=== PATIENT | female | born 1940 | race Caucasian/White ===

== ENCOUNTER 2016-09-30 12:07 | Inpatient (IN) | payer OTHER ==
[2016-09-25 14:34] LABS: HEMATOCRIT 39.3 % (36.0-48.0); HEMOGLOBIN 12.7 g/dL (12.0-16.0)
[2016-09-25 14:50] LABS: BUN (BLOOD UREA NITROGEN) 39 MG/DL (6-23); CALCIUM, SERUM 8.9 MG/DL (8.5-10.4); CHLORIDE, SERUM 105 MMOL/L (96-112); CO2 (CARBON DIOXIDE) 30 MMOL/L (24-34); CREATININE 1.09 MG/DL (0.55-1.02); GFR AFRICAN AMERICAN 58 ML/MIN (>=60); GFR NON AFRICAN AMERICAN 50 ML/MIN (>=60); GLUCOSE, SERUM 105 MG/DL (60-99); POTASSIUM, SERUM 4.5 MMOL/L (3.5-5.3); SODIUM, SERUM 144 MMOL/L (135-148)
[2016-09-25 16:21] LABS: ASCORBIC ACID (UR NOT ORDER) 20 (NEG); BILIRUBIN, URINE NEGATIVE (NEG); KETONE, URINE NEGATIVE (NEG); LEUKOCYTE ESTERASE(NOT OR LARGE (NEG); WBC (NOT ORDERED) (RFLEX) 121 (0-5)
--- NOTE | ~2016-09-30 | DS ---
Discharge Summary [facility] [address] [place]. [address] NAME: TAYLER JORDAN : 44 STATUS : DIS IN PAT#: [id number] AGE: 76 ADM/REG DATE : 09/30/16 MR#: [id number] REPORT SERV DATE: 11/07/16 DICTATED BY: SILVESTRE BAKER DATE: 11/07/16 REPORT STATUS : Draft TRANSCRIBED BY: CURRY DATE: 11/07/16 ADMISSION DATE: 09/30/2016 DISCHARGE DATE: 10/06/2016 DISCHARGE DIAGNOSIS: Colovesical fistula. DISCHARGE PROCEDURES: 1. Cystoscopy and transurethral resection of bladder. 2. Sigmoid colectomy. 3. Repair of bladder defect. HOSPITAL COURSE: Ms. Tayler Jordan is a 76-year-old female with a long history of bladder symptoms, hematuria, and recurrent UTIs. She has a bladder mass which was inflammatory in nature. On the date of admission, she underwent a cystoscopy and transurethral resection of this area. In the operating room, there was concern for connection between the colon and the bladder. This did appear to be pre-existing prior to the cystoscopy portion of this operation. This is likely driving all of her bladder symptoms. Once fistulous connection between the bladder and colon was unroofed, she was taken to the operating room, and underwent a sigmoid colectomy with repair of her bladder with the aid of Dr. Potts. Please see my operative note as well as Dr. Potts's operative note for full details. Postoperatively, the patient was transferred to the recovery room, then to the floor in stable condition. During her hospitalization, diet was gradually advanced to a regular diet. She had normal bowel movement prior to discharge. The drain placed prior to discharge was removed. [facility] with a Nogueira catheter in place. DISCHARGE MEDICATIONS: Please see discharge medication reconciliation work sheet. DISCHARGE INSTRUCTIONS: Please leave the Nogueira catheter in place. Take all medications as directed. No heavy lifting greater than 10 pounds. Please follow up with me in one week with a cystogram to confirm bladder healing prior to Nogueira catheter removal. FOLLOWUP: Please follow up in one week with a cystogram. ERICA/CURRY Silvestre Baker MD / [id number] CC: MD Rosalio Burch M.D.
--- NOTE | ~2016-09-30 | OP ---
Record Of Operation [facility] [address] [facility] [place]. [address] NAME: DIO DALE : 42 STATUS : ADM IN PAT#: [id number] AGE: 76 ADM/REG DATE : 09/30/16 MR#: [id number] REPORT SERV DATE: 10/03/16 DICTATED BY: SILVESTRE BAKER DATE: 10/03/16 REPORT STATUS : Draft TRANSCRIBED BY: MODL DATE: 10/03/16 DATE OF PROCEDURE: 09/30/2016 SURGEON: Silvestre Baker M.D. TITLE OF OPERATION: 1. Transurethral resection of bladder tumor greater than 5 cm. 2. Exploratory laparotomy. 3. Repair of bladder defect. PREOPERATIVE DIAGNOSIS: Polypoid cystitis. POSTOPERATIVE DIAGNOSES: 1. Diverticulosis. 2. Bladder perforation into colon. 3. Acute cholecystitis, due to inflamed diverticulosis with pending intracutaneous fistula. ANESTHESIA: General. COMPLICATIONS: Transurethral placement of enterovesical fistula. SPECIMENS: 1. Sigmoid colon. 2. Bladder mass. DRAINS: 1. 16-Bangladeshi Nogueira catheter. 2. #19 flat KRIS drain. NARRATIVE: The patient was brought to the operating room, identified by her wristband. General anesthesia was induced and Ancef was given for preoperative antibiotics. She was placed in dorsal lithotomy position, prepped and draped in sterile fashion. A cystoscope was placed into her urethra and into her bladder. A big polyp mass was seen in the posterior aspect in dome of the bladder. The cystoscope was removed and a 24-Bangladeshi resectoscope was placed into the urethra with the aid of an obturator. Using a 24-Bangladeshi loop, the polypoid mass was resected. Resection was done based on the assumption of polypoid cystitis which came back on prior biopsy. During the resection the inflamed muscularis propria was then resected and all of sudden I entered into a hollow space. The bases were inspected, the mucosa look like bowel. A cystogram was shot. This demonstrated a formation including the large bowel. There was no clear leakage of contrast into the peritoneal or retroperitoneal space. At this time the scope was removed. The chips that were resected were evacuated and sent to the pathology for analysis. The patient was moved extubated to an open room. I obtained general surgery consultation from Dr. Potts. After discussing the case with him, we decided that it would be best to perform an exploratory laparotomy with resection of the involved bowel and repair the bladder. Once, the patient Record Of Operation [facility] [place]. [address] NAME: DIO DALE : 42 STATUS : ADM IN PAT#: [id number] AGE: 76 ADM/REG DATE : 09/30/16 MR#: [id number] REPORT SERV DATE: 10/03/16 DICTATED BY: SILVESTRE BAKER DATE: 10/03/16 REPORT STATUS : Draft TRANSCRIBED BY: MODL DATE: 10/03/16 was in appropriate room and her antibiotics were broadened to Flagyl and Levaquin. A midline incision was made with a knife. The incision was deepened through the subcutaneous tissues with electrocautery. The fascia was also incised with scissors. The peritoneal cavity was entered with the Metzenbaum scissors. A retractor was placed. The bowel was packed out of the way. The findings were the sigmoid colon was stuck to the posterior aspect of the bladder. At this time Dr. Potts's special event assistant came into the room and performed a lysis of adhesions off from the bowel, off the bladder, and a sigmoid resection with primary hand-sewn anastomosis. For full details of this operation please see Dr. Potts's separately dictated operative note. Once Dr. Potts had finished his portion of the procedure, I scrubbed up in. There was bladder defect. The seromuscular layers of the bladder were grossly edematous and difficult to mobilize. Therefore, I made a larger cystotomy, so I can identify the mucosal borders. The previously resected tissue from the bladder from the TUR was removed to ensure good gvfsin-rg-ryszhm apposition. The mucosa was then closed with 2-0 Vicryl suture. This was done in a running fashion. The seromuscular layer was closed with interrupted 2-0 Vicryl suture in a vucqbz-ra-okhsu fashion. The bladder was irrigated, it was water tight, there was no leakage. The patient did have some scant omentum. This was brought down between the anastomosis in the bladder, there was not that much omentum to place down here unfortunately. Next, the #9 flat KRIS drain was placed through a separate stab incision and placed in the vicinity of the repairs. The retractor was removed. Laparotomy pads were removed. Counts were all correct. The fascia was closed with a running #1 PDS suture. The wound was irrigated clear. The skin was closed with 4-0 Monocryl suture in a subcuticular fashion and Dermabond dressing was placed. The patient was awoken from anesthesia and transferred to the recovery room in stable condition. ERICA/CURRY Silvestre Baker MD / [id number] CC: MD Rosalio Burch M.D.
--- NOTE | ~2016-09-30 | HP ---
History And Physical [facility] [id number] [place]. [address] NAME: TAYLER JORDAN : 44 STATUS : DIS IN PAT#: [id number] AGE: 76 ADM/REG DATE : 09/30/16 MR#: [id number] REPORT SERV DATE: 11/07/16 DICTATED BY: SILVESTRE BAKER DATE: 11/07/16 REPORT STATUS : Draft TRANSCRIBED BY: MODL DATE: 11/07/16 DATE OF ADMISSION: 09/30/2016 CHIEF COMPLAINT: Colovesical fistula. HISTORY OF PRESENT ILLNESS: Ms. Tayler Jordan is a very pleasant 76-year-old female, who I have been seeing for recurrent bladder symptoms as well as hematuria. On CT scan, she was found to have a large bladder mass. This was biopsied and came back as polypoid cystitis. Recommended conservative management at that time. However, she has continued to bleed with concerning findings. She was then brought to the operating room on the date of admission for cystoscopy and transurethral resection of this mass. In the operating room, the mass was prominently in the posterior aspect of the bladder. There was marked erythema and potentially a fistulous tract. The fistulous tract was unroofed, which revealed a tract into the sigmoid colon. This process was clearly going on prior to the procedure. Given the now enlarged colovesical fistula, I put a catheter in the patient, transferred her to an operating room table, and performed an operation with the help of Dr. Potts. She underwent a sigmoid colectomy with primary reanastomosis with repair of her bladder defect. This is a history and physical for her subsequent admission. PAST MEDICAL HISTORY: Notable for a colovesical fistula as detailed above, hypertension, GERD, recurrent UTIs. PAST SURGICAL HISTORY: As detailed above. ALLERGIES: PENICILLIN. MEDICATIONS: Reviewed and are in the chart. FAMILY HISTORY: Negative for genitourinary malignancy. SOCIAL HISTORY: Social drinker. Does not smoke or use illegal drugs. REVIEW OF SYSTEMS: Performed, pertinent positives are listed in the HPI. PHYSICAL EXAMINATION: VITAL SIGNS: She is afebrile. Her vital signs are stable. GENERAL: She is in no acute distress. She appears her stated age. HEENT: Her head is normocephalic and atraumatic. LUNGS: Breathing is nonlabored. ABDOMEN: Tender from her prior surgery. She has a midline scar. NEUROLOGIC: She is alert and oriented x3. : Nogueira catheter is in place, urine is clear. ASSESSMENT AND PLAN: Ms. Jordan has undergone successful sigmoid colectomy with repair of bladder defect. She will be maintained in the hospital with a Nogueira catheter and KRIS drain History And Physical [address] [address] NAME: TAYLER JORDAN : 44 STATUS : DIS IN PAT#: [id number] AGE: 76 ADM/REG DATE : 09/30/16 MR#: [id number] REPORT SERV DATE: 11/07/16 DICTATED BY: SILVESTRE BAKER DATE: 11/07/16 REPORT STATUS : Draft TRANSCRIBED BY: CURRY DATE: 11/07/16 as she continues to heal. Dr. Potts and his team will follow closely and help manage her diet and her bowel function as well. I will leave the catheter in for approximately a week, at which time I will get a cystogram to see if her bladder has healed. She is doing well. ERICA/CURRY Silvestre Baker MD / [id number] CC: MD Rosalio Burch M.D.
--- NOTE | ~2016-09-30 | OP ---
Record Of Operation [facility] [address] [place]. [address] NAME: DIO DALE : 42 STATUS : ADM IN [facility]#: [id number] AGE: 76 ADM/REG DATE : 09/30/16 MR#: [id number] REPORT SERV DATE: 10/02/16 DICTATED BY: DEMOND POTTS DATE: 10/01/16 REPORT STATUS : Draft TRANSCRIBED BY: MODL DATE: 10/01/16 DATE OF PROCEDURE: 09/30/2016 PREOPERATIVE DIAGNOSIS: Rectosigmoid injury. POSTOPERATIVE DIAGNOSIS: Colovesical fistula secondary to remote diverticulitis, status post diagnostic cystoscopy. SURGEON: Demond Potts M.D. RESIDENT SURGEON: Dr. Anne Gracia. ANESTHESIA: General. DESCRIPTION OF FINDINGS: The patient had undergone cystoscopy by Dr. Baker and found communication to the . The patient then underwent exploratory laparotomy by Dr. Baker' finding markedly adherence, but no acute inflammation of the upper rectum, lower sigmoid to the dome of the bladder consistent with the patient's history of significant diverticulitis in 2013. This was resected and due to paucity of spillage compliant bowel and minimal stool within the bowel primary anastomosis was performed. DETAILS OF PROCEDURE: The patient was in the operating suite as per Dr. Baker. The sigmoid colon and upper rectum were found adherent to the dome of the bladder using careful blunt and sharp dissection. This was peeled away and connection with approximately 1.5 cm defect in the bladder was apparent and the bowel was entered as expected. This was fully mobilize. Bleeding control with 3-0 silk suture ligatures. The proximal bowel was very compliant and had a paucity of stool. This was mobilized, mesentery divided between clamps and secured with 2-0 and 3-0 Vicryl ligatures. Bowel was divided with firing of the Endo- JUAN 75 stapling device. The adherent bowel was then more fully dissected to where it was then mobilized fully from the bladder and distal to the area of and old inflammation. The mesentery was divided similarly and bowel divided with another firing of the Endo-JUAN 75 stapling device. Specimen was then palpated. There appeared to be no mass. This was sent for permanent histology. A kgws-ug-hkau rectosigmoid ostomy was then performed. Approximated the antimesenteric borders along the tenia and using 3-0 silk sutures at either end and then approximating full-thickness 3-0 PDS, the was entered longitudinally on either side of the suture line and using additional 3-0 PDS mucosa was approximated and then anterior suture row of interrupted 3-0 PDS was utilized excellent anastomotic lumen. Wound was irrigated. There was minimal contamination. All captured on lap pads. Once satisfied with the repair, colocolostomy bladder repair was then performed by Dr. Baker. We then placed omentum between the repairs and closed as per his dictation. /CURRY Record Of [address] [address] NAME: DIO DALE : 44 STATUS : ADM IN PAT#: [id number] AGE: 76 ADM/REG DATE : 09/30/16 MR#: [id number] REPORT SERV DATE: 10/02/16 DICTATED BY: DEMOND POTTS DATE: 10/01/16 REPORT STATUS : Draft TRANSCRIBED BY: MODL DATE: 10/01/16 Demond Potts M.D. / [id number] CC: MD Rosalio Burch M.D.
[~2016-09-30 12:07] MED LIST: ALIGN4 MG PO; ANUSOL HC SUPP1 SUPP PR; ATV.5 PO; BYSTOLIC10 MG PO; CAT1 PO; CELEXA10 PO; CO Q-10100 MG PO; COENZYME Q10 PO; COQ-1010 MG; EZFE 200200 MG PO; FAMVIR 500 MG500 MG PO; FIBER POWDER PO; HYZAAR1 TAB PO; K250 PO; LEVAQUIN750 MG PO; LOP50 PO; PRILOSEC40 MG PO; PROBIOTIC PO; PROTONIX PO; VITAMIN C PO; VITAMIN D2000 UNIT PO; VITC500 PO
[2016-10-01 05:27] LABS: HEMOGLOBIN 10.5 g/dL (12.0-16.0); MEAN PLATELET VOLUME 9.8 fL (9.2-13.0); PLATELET COUNT 279 10/3/uL (150-400); RED CELL COUNT 3.19 10/6/uL (4.0-5.6)
[2016-10-01 05:28] LABS: CALCIUM, SERUM 8.6 MG/DL (8.5-10.4); CHLORIDE, SERUM 107 MMOL/L (96-112); CREATININE 1.22 MG/DL (0.55-1.02); GFR AFRICAN AMERICAN 51 ML/MIN (>=60); GFR NON AFRICAN AMERICAN 44 ML/MIN (>=60); POTASSIUM, SERUM 4.9 MMOL/L (3.5-5.3); SODIUM, SERUM 139 MMOL/L (135-148)
[2016-10-01 05:29] LABS: HEMATOCRIT 31.8 % (36.0-48.0); MEAN CORPUSCULAR HEMOGLOB 32.9 pg (26.0-34.0); MEAN CORPUSCULAR VOLUME 99.7 fL (80-100); RBC DISTRIBUTION WIDTH 13.9 % (12.0-16.0); WHITE BLOOD CELLS 28.2 10/3/uL (4.5-10.5)
[2016-10-01 05:30] LABS: MANUAL DIFF YES %
[2016-10-01 05:32] LABS: BUN (BLOOD UREA NITROGEN) 29 MG/DL (6-23); CO2 (CARBON DIOXIDE) 22 MMOL/L (24-34); GLUCOSE, SERUM 152 MG/DL (60-99)
[2016-10-01 05:56] LABS: BAND NEUTROPHILS 3 %; LYMPHOCYTES 1 %; LYMPHOCYTES ABSOLUTE (CALC) 0.28 10/3/uL (0.67-4.30); MONOCYTES 4 %; MONOCYTES ABSOLUTE (CALC) 1.13 10/3/uL (0.21-1.20); NEUTROPHILS ABSOLUTE (CALC) 26.79 10/3/uL (2.02-8.40); PLATELET ESTIMATE ADQ (ADEQUATE); POIKILOCYTOSIS 1+ (5-10/OIF) (0-5/OIF); SEGMENTED NEUTROPHIL (0) 92 %; TOTAL NUCLEATED CELLS 100
[2016-10-02 05:37] LABS: HEMATOCRIT 29.6 % (36.0-48.0); HEMOGLOBIN 9.8 g/dL (12.0-16.0); MEAN CORPUS HGB CONC 33.1 g/dL (32.0-36.0); MEAN CORPUSCULAR HEMOGLOB 32.8 pg (26.0-34.0); MEAN PLATELET VOLUME 9.5 fL (9.2-13.0); PLATELET COUNT 262 10/3/uL (150-400); RBC DISTRIBUTION WIDTH 14.2 % (12.0-16.0); RED CELL COUNT 2.99 10/6/uL (4.0-5.6); WHITE BLOOD CELLS 22.2 10/3/uL (4.5-10.5)
[2016-10-02 05:39] LABS: MANUAL DIFF YES %
[2016-10-02 05:50] LABS: CALCIUM, SERUM 8.6 MG/DL (8.5-10.4); CHLORIDE, SERUM 100 MMOL/L (96-112); CO2 (CARBON DIOXIDE) 22 MMOL/L (24-34); CREATININE 1.02 MG/DL (0.55-1.02); GFR AFRICAN AMERICAN 63 ML/MIN (>=60); GFR NON AFRICAN AMERICAN 54 ML/MIN (>=60); POTASSIUM, SERUM 4.8 MMOL/L (3.5-5.3)
[2016-10-02 05:51] LABS: BUN (BLOOD UREA NITROGEN) 21 MG/DL (6-23); GLUCOSE, SERUM 118 MG/DL (60-99); SODIUM, SERUM 132 MMOL/L (135-148)
[2016-10-02 06:24] LABS: LYMPHOCYTES 5 %; LYMPHOCYTES ABSOLUTE (CALC) 1.11 10/3/uL (0.67-4.30); MONOCYTES 2 %; MONOCYTES ABSOLUTE (CALC) 0.44 10/3/uL (0.21-1.20); NEUTROPHILS ABSOLUTE (CALC) 20.65 10/3/uL (2.02-8.40); PLATELET ESTIMATE ADQ (ADEQUATE); SEGMENTED NEUTROPHIL (0) 93 %; TOTAL NUCLEATED CELLS 100
[2016-10-02 06:25] LABS: TOXIC GRANULATION SLT; VACUOLATED NEUTROPHILES OCC
[2016-10-03 05:57] LABS: BASOPHILS 0.1 %; BASOPHILS ABSOLUTE 0.01 10/3/uL (0.0-0.16); EOSINOPHILS 0 %; HEMOGLOBIN 9.1 g/dL (12.0-16.0); IMMATURE GRANULOCYTES 0.3 %; IMMATURE GRANULOCYTES ABSOLUTE 0.06 10/3/uL (0.0-0.11); LYMPHOCYTES 3.6 %; LYMPHOCYTES ABSOLUTE 0.64 10/3/uL (0.67-4.30); MEAN CORPUS HGB CONC 34.2 g/dL (32.0-36.0); MEAN CORPUSCULAR HEMOGLOB 32.7 pg (26.0-34.0); MONOCYTES 6.4 %; MONOCYTES ABSOLUTE 1.14 10/3/uL (0.21-1.20); NEUTROPHILS 89.6 %; NEUTROPHILS ABSOLUTE 16.01 10/3/uL (2.02-8.40); PLATELET COUNT 264 10/3/uL (150-400); RBC DISTRIBUTION WIDTH 14.4 % (12.0-16.0); RED CELL COUNT 2.78 10/6/uL (4.0-5.6); WHITE BLOOD CELLS 17.9 10/3/uL (4.5-10.5)
[2016-10-03 05:59] LABS: HEMATOCRIT 26.6 % (36.0-48.0); MANUAL DIFF NO %; MEAN CORPUSCULAR VOLUME 95.7 fL (80-100)
[2016-10-03 06:12] LABS: BUN (BLOOD UREA NITROGEN) 22 MG/DL (6-23); CALCIUM, SERUM 8.4 MG/DL (8.5-10.4); CHLORIDE, SERUM 98 MMOL/L (96-112); CO2 (CARBON DIOXIDE) 22 MMOL/L (24-34); CREATININE 1.01 MG/DL (0.55-1.02); GFR AFRICAN AMERICAN 64 ML/MIN (>=60); GFR NON AFRICAN AMERICAN 55 ML/MIN (>=60); GLUCOSE, SERUM 128 MG/DL (60-99); POTASSIUM, SERUM 4.3 MMOL/L (3.5-5.3); SODIUM, SERUM 131 MMOL/L (135-148)
[2016-10-04 06:25] LABS: BASOPHILS 0.1 %; BASOPHILS ABSOLUTE 0.01 10/3/uL (0.0-0.16); BUN (BLOOD UREA NITROGEN) 19 MG/DL (6-23); CALCIUM, SERUM 8.4 MG/DL (8.5-10.4); CHLORIDE, SERUM 102 MMOL/L (96-112); CO2 (CARBON DIOXIDE) 25 MMOL/L (24-34); CREATININE 0.93 MG/DL (0.55-1.02); EOSINOPHILS 0.2 %; EOSINOPHILS ABSOLUTE 0.03 10/3/uL (0.0-0.53); GFR AFRICAN AMERICAN 70 ML/MIN (>=60); GFR NON AFRICAN AMERICAN 61 ML/MIN (>=60); GLUCOSE, SERUM 104 MG/DL (60-99); HEMATOCRIT 25.8 % (36.0-48.0); HEMOGLOBIN 8.8 g/dL (12.0-16.0); IMMATURE GRANULOCYTES 0.2 %; IMMATURE GRANULOCYTES ABSOLUTE 0.03 10/3/uL (0.0-0.11); LYMPHOCYTES 6.3 %; LYMPHOCYTES ABSOLUTE 0.88 10/3/uL (0.67-4.30); MEAN CORPUS HGB CONC 34.1 g/dL (32.0-36.0); MEAN CORPUSCULAR HEMOGLOB 33.2 pg (26.0-34.0); MEAN CORPUSCULAR VOLUME 97.4 fL (80-100); MEAN PLATELET VOLUME 8.9 fL (9.2-13.0); MONOCYTES 8.9 %; MONOCYTES ABSOLUTE 1.24 10/3/uL (0.21-1.20); NEUTROPHILS 84.3 %; NEUTROPHILS ABSOLUTE 11.74 10/3/uL (2.02-8.40); PLATELET COUNT 253 10/3/uL (150-400); POTASSIUM, SERUM 3.9 MMOL/L (3.5-5.3); RBC DISTRIBUTION WIDTH 14.4 % (12.0-16.0); RED CELL COUNT 2.65 10/6/uL (4.0-5.6); SODIUM, SERUM 135 MMOL/L (135-148); WHITE BLOOD CELLS 13.9 10/3/uL (4.5-10.5)
[2016-10-04 06:28] LABS: MANUAL DIFF NO %
[2016-10-05 08:39] LABS: BASOPHILS 0.1 %; BASOPHILS ABSOLUTE 0.01 10/3/uL (0.0-0.16); EOSINOPHILS 0.3 %; EOSINOPHILS ABSOLUTE 0.04 10/3/uL (0.0-0.53); HEMATOCRIT 27.6 % (36.0-48.0); HEMOGLOBIN 9.2 g/dL (12.0-16.0); IMMATURE GRANULOCYTES 0.3 %; IMMATURE GRANULOCYTES ABSOLUTE 0.04 10/3/uL (0.0-0.11); LYMPHOCYTES 7.4 %; LYMPHOCYTES ABSOLUTE 0.97 10/3/uL (0.67-4.30); MEAN CORPUS HGB CONC 33.3 g/dL (32.0-36.0); MEAN CORPUSCULAR HEMOGLOB 32.7 pg (26.0-34.0); MEAN CORPUSCULAR VOLUME 98.2 fL (80-100); MEAN PLATELET VOLUME 8.7 fL (9.2-13.0); MONOCYTES 8.9 %; MONOCYTES ABSOLUTE 1.17 10/3/uL (0.21-1.20); NEUTROPHILS ABSOLUTE 10.94 10/3/uL (2.02-8.40); PLATELET COUNT 292 10/3/uL (150-400); RBC DISTRIBUTION WIDTH 14.6 % (12.0-16.0); RED CELL COUNT 2.81 10/6/uL (4.0-5.6); WHITE BLOOD CELLS 13.2 10/3/uL (4.5-10.5)
[2016-10-05 08:41] LABS: MANUAL DIFF NO %
[2016-10-05 08:56] LABS: CALCIUM, SERUM 8.4 MG/DL (8.5-10.4); CHLORIDE, SERUM 104 MMOL/L (96-112); CO2 (CARBON DIOXIDE) 24 MMOL/L (24-34); CREATININE 0.99 MG/DL (0.55-1.02); GFR AFRICAN AMERICAN 65 ML/MIN (>=60); GFR NON AFRICAN AMERICAN 56 ML/MIN (>=60); GLUCOSE, SERUM 107 MG/DL (60-99); POTASSIUM, SERUM 3.8 MMOL/L (3.5-5.3); SODIUM, SERUM 137 MMOL/L (135-148)
[2016-10-05 08:59] LABS: BUN (BLOOD UREA NITROGEN) 24 MG/DL (6-23)
== END 2016-10-06 14:01 | DRG 654 ==
LOC: SDC 12:07 → 4SO 18:32
PROVIDERS: Specialist; Urology
PROC: 0TTB0ZZ Resection of Bladder, Open Approach (ICD-10-PCS; principal; 2016-09-30 15:00)
PROC: 0DBN0ZZ Excision of Sigmoid Colon, Open Approach (ICD-10-PCS; 2016-09-30 15:00)
PROC: 0TQB0ZZ Repair Bladder, Open Approach (ICD-10-PCS; 2016-09-30 15:00)
PROC: 0WUF07Z Supplement Abdominal Wall with Autologous Tissue Substitute, Open Approach (ICD-10-PCS; 2016-09-30 15:00)
DX: N32.89 Other specified disorders of bladder (principal); K63.2 Fistula of intestine; I11.0 Hypertensive heart disease with heart failure; I27.2 Other secondary pulmonary hypertension; K57.32 Diverticulitis of large intestine without perforation or abscess without bleeding; I34.0 Nonrheumatic mitral (valve) insufficiency
CPT/HCPCS: 71010; 74420; 80048; 81001; 82570; 85014; 85018; 85025; 87086; 88307; 93005; 97110-GP; 97116-GP; 97162-GP; 97530-GP; A9270-GY; C1758; C9113; G8978-CK-GP; G8979-CJ-GP; J0690; J1170; J1200; J1956; J2370; J2405; J2710; J3010; Q9967